=== PATIENT | female | born 1985 | race Two or more races ===

== ENCOUNTER 2020-01-21 17:10 | Emergency (ER) | payer OTHER ==
[~2020-01-21] VITALS: Ht 162.6 cm; Wt 58.1 kg
--- NOTE | 2020-01-21 17:21 | NUR ---
[place] FROM BUS STOP TO ER BED 14. AWAKE, ALERT BUT NOT ANSWERING TO ANY QUESTION. NOT IN RESP DISTRESS. BROUGHT IN FOR UNUSUAL BEHAVIOR. PER EMS REPORT, PASSER BY CALLED IN BECAUSE PT WAS TAKING HER CLOTHES OFF. UNABLE TO GET ANY FURTHER INFORMATION FROM PT. AWAITING MD FOR EVAL.
[2020-01-21 17:52] LABS: BASOPHILS # (AUTO) 0.1 /CMM (0.0-0.2); BASOPHILS % (AUTO) 0.9 % (0.0-2.0); EOSINOPHILS % (AUTO) 3.7 % (0.0-6.0); HEMATOCRIT 44 % (33-45); LYMPHOCYTES # (AUTO) 2.8 /CMM (0.8-4.8); LYMPHOCYTES % (AUTO) 26.1 % (20.0-44.0); MEAN CORPUSCULAR HGB CONC 32 g/dl (31.0-36.0); MEAN CORPUSCULAR VOLUME 86 fL (82-100); MONOCYTES # (AUTO) 0.8 /CMM (0.1-1.30); NEUTROPHILS # (AUTO) 6.7 /CMM (1.8-8.9); NEUTROPHILS % (AUTO) 62.3 % (43.0-81.0); PLATELET COUNT (AUTO) 336 /CMM (150-450); RED BLOOD CELL COUNT(AUTO) 5.08 MIL/uL (4.0-5.2); WHITE BLOOD COUNT (AUTO) 10.8 K/uL (4.3-11.0)
[2020-01-21] MEDS ORDERED: OLANZAPINE 10 MG VIAL IM ONE ×2 (18:00→19:14)
[2020-01-21] MEDS ORDERED: IV NS 0.9% 1,000 ML BAG IV ONE (18:00)
[2020-01-21 18:25] LABS: CALCIUM, SERUM 8.8 mg/dL (8.5-10.1); CARBON DIOXIDE 24 mmol/L (21-32); CHLORIDE 110 mmol/L (98-107); CREATININE 0.9 mg/dL (0.6-1.3); GLUCOSE 115 mg/dL (74-106); POTASSIUM 4.2 mmol/L (3.5-5.1); SODIUM SERUM 144 mmol/L (136-145); UREA NITROGEN, BLOOD 13 mg/dL (7-18)
[2020-01-21] MEDS ORDERED: LORAZEPAM INJ 2 MG/ML VIAL ONE (18:27)
[2020-01-21] MEDS ORDERED: LORAZEPAM INJ 2 MG/ML VIAL IM ONE (18:30)
[2020-01-21 18:31] LABS: ALANINE AMINOTRANSFERASE 34 U/L (12-78); ALBUMIN 3.2 g/dL (3.4-5.0); ALCOHOL, BLOOD < 3 mg/dL (0-0); ALKALINE PHOSPHATASE 100 U/L (46-116); ASPARTATE AMINOTRANSFERASE 36 U/L (15-37); BILIRUBIN,TOTAL 0.4 mg/dL (0.2-1.0); TOTAL PROTEIN, SERUM 7.1 g/dL (6.4-8.2)
--- NOTE | 2020-01-21 18:35 | NUR ---
PT WAS GIVEN ATIVAN 2MG IM PER ORDERED. HOLD ZYPREXA UNTIL NEEDED. PT IS MOVING TOO MUCH AND WILL DO IV ONCE MEDICATION IS WORKING. ELIN ZAMBRANO AWARE
[2020-01-21 18:48] LABS: ACETAMINOPHEN < 2 ug/ml (10-30)
--- NOTE | 2020-01-21 19:10 | NUR ---
urine collected sent to lab
[2020-01-21 19:14] LABS: BILIRUBIN,URINE SMALL (NEGATIVE); BLOOD, URINE Trace-intact Ery/uL (NEGATIVE); COLOR,URINE YELLOW (YELLOW); LEUKOCYTE ESTERASE ,URINE Negative (NEGATIVE); NITRITE, URINE Negative (NEGATIVE); PROTEIN,URINE Trace mg/dl (NEGATIVE); UGLUCOSE Negative (NEGATIVE)
--- NOTE | 2020-01-21 19:21 | NUR ---
pt still moving around and cant stay still. pt is medicated with zyprexa as ordered.
[2020-01-21 19:22] LABS: BACTERIA,URINE Rare /HPF (None Seen); SQUAMOUS EPITHELIAL CELL,UR Few /HPF (None Seen); WBC,URINE NONE SEEN /HPF (0-3)
--- NOTE | 2020-01-21 21:53 | NUR ---
PT BROUGHT BY RADIOLOGY. CT UNSUCCESSFUL, PT REMAINS TOO AGITATED FOR CT SCAN. AWARE
[2020-01-21] MEDS ORDERED: MIDAZOLAM HCL 5 MG/5ML VIAL ONE (22:00)
[2020-01-21] MEDS ORDERED: MIDAZOLAM HCL 2 MG/2ML VIAL IV ONE (22:00)
--- NOTE | 2020-01-21 22:30 | NUR ---
BACK FROM CT
--- NOTE | 2020-01-21 23:50 | NUR ---
PT IN BED SLEEPING. NAD NOTED
--- NOTE | 2020-01-22 01:45 | NUR ---
PT REMAINS ASLEEP, VSS.
--- NOTE | 2020-01-22 03:46 | NUR ---
PT AMBULATED TO THE RESTROOM, VSS.
--- NOTE | 2020-01-22 04:12 | NUR ---
Patient discharged to home in stable condition. Written and verbal after care instructions given. Patient verbalizes understanding of instruction. IV removed. Catheter intact and site benign. Pressure and 4x4 applied to site. No bleeding noted. Pt ambulated out of E.D. vss.
[2020-01-22 05:16] VITALS: BP 117/69
== END 2020-01-22 04:59 | disposition home or self-care (01) ==
LOC: EDBD 17:13 → ER 17:13
DX: R46.1 Bizarre personal appearance (principal); R45.1 Restlessness and agitation; R41.82 Altered mental status, unspecified
CPT/HCPCS: 36415; 70450; 80048; 80076; 80299; 80307; 80320; 81001; 84702; 84703; 85025; 96361; 96372 ×2; 96374; 99285; J2060; J2250; J3490; J7030; G0480